=== PATIENT | female | born 1960 | race American Indian/Alaskan Native ===

== ENCOUNTER 2017-05-10 15:19 | Outpatient (CLI) | payer MEDICARE ==
--- NOTE | 2017-05-11 08:41 | XRay Report ---
Bilateral knees, 3 views of each: Arthritis, pain. Imaging of the left knee demonstrate marked periarticular spurring worse on the medial than the lateral compartment with narrowing of the joint space. The articular margins appear generally smooth and there is good alignment of the knee. Mild periarticular spurring at the patellofemoral articulation. No effusion nor swelling. Imaging of the right knee likewise demonstrates periarticular spurring worse on the medial and lateral side with also mild narrowing of the joint space and smooth articular margins. In addition proliferative spurs are identified at the patellofemoral articulation. 2 large calcifications are identified in the posterior joint space. No effusion nor swelling noted. Compared to prior exam in January 2015 the calcifications in the posterior right knee have enlarged. The retropatella narrowing may have worsened. 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 Significant patellofemoral degenerative changes bilaterally. Enlarging posterior joint calcifications on the right which may represent loose bodies.
== END 2017-05-10 15:20 | disposition home or self-care (01) ==
LOC: XRAY 15:19
PROVIDERS: ATTEND Family Medicine
DX: M17.11 Unilateral primary osteoarthritis, right knee (principal); M17.12 Unilateral primary osteoarthritis, left knee; M25.862 Other specified joint disorders, left knee; M25.861 Other specified joint disorders, right knee